=== PATIENT | female | born 1995 ===

== ENCOUNTER 2018-06-20 20:29 | Emergency (ER) | payer BC ==
--- NOTE | 2018-06-20 22:08 | UC ---
Throat Pain/Nasal Don HPI - HPI Summary HPI Summary: Pt present with c/o tender, moveable lump on left side of neck that she noticed today. Pt reports that she recently had URI infection - History of Current Complaint Chief Complaint: UCRespiratory Stated Complaint: SWELLING IN NECK Time Seen by Provider: 06/20/18 21:39 Hx Obtained From: Patient Hx Last Menstrual Period: 06/05/18 ?: No Onset/Duration: Sudden Onset, Still Present Severity: Mild Pain Intensity: 2 Pain Scale Used: 0-10 Numeric Cough: None Associated Signs & Symptoms: Positive: Negative - Epiglottits Risk Factors Epiglottis Risk Factors: Sudden Onset - Allergies/Home Medications Allergies/Adverse Reactions: Allergies Allergy/AdvReac Type Severity Reaction Status Date / Time No Known Allergies Allergy Verified 06/20/18 20:55 Home Medications: Home Medications NK [No Home Medications Reported] 06/20/18 [History Confirmed 06/20/18] PMH/Surg Hx/FS Hx/Imm Hx Previously Healthy: Yes - Surgical History Surgical History: None - Family History Known Family History: Positive: Cardiac Disease - Social History Occupation: Student [employer] Lives: Dormitory/Roommates Alcohol Use: Weekly Alcohol Amount: one glass of wine Substance Use Type: None Smoking Status (MU): Never Smoked Tobacco Have You Smoked in the Last Year: No - Immunization History Vaccination Up to Date: Yes Review of Systems All Other Systems Reviewed And Are Negative: Yes Constitutional: Positive: Negative Skin: Positive: Negative Eyes: Positive: Negative ENT: Positive: Ear Ache, Sinus Congestion Respiratory: Positive: Negative Cardiovascular: Positive: Negative Gastrointestinal: Positive: Negative Genitourinary: Positive: Negative Motor: Positive: Negative Neurovascular: Positive: Negative Musculoskeletal: Positive: Negative Neurological: Positive: Negative Psychological: Positive: Negative Is Patient Immunocompromised?: No Physical Exam Triage Information Reviewed: Yes Appearance: Well-Appearing Vital Signs: Initial Vital Signs Temp 98.6 F 06/20/18 20:50 Pulse 66 06/20/18 20:50 Resp 16 06/20/18 20:50 BP 134/80 06/20/18 20:50 Pulse Ox 100 06/20/18 20:50 Vital Signs Reviewed: Yes Eye Exam: Normal ENT: Positive: Other - cerumen in bilateral ear canals Dental Exam: Normal Neck exam: Normal Neck: Positive: Enlarged Nodes @ - left submaxillary, soft, moveable, mild tender Cardiovascular Exam: Normal Musculoskeletal Exam: Normal Neurological Exam: Normal Psychological Exam: Normal Skin Exam: Normal Throat Pain/Nasal Course/Dx - Differential Dx/Diagnosis Differential Diagnosis/HQI/PQRI: URI Provider Diagnosis: Lymphadenopathy of head and neck Discharge - Sign-Out/Discharge Documenting (check all that apply): Patient Departure All imaging exams completed and their final reports reviewed: No Studies - Discharge Plan Condition: Stable Disposition: HOME Patient Education Materials: Lymphadenopathy (ED) Referrals: Care [facility] [address] [Outside] - If Needed No Primary Care Phys,NOPCP [Primary Care Provider] - - Billing Disposition and Condition Condition: STABLE Disposition: Home
== END 2018-06-20 21:50 | disposition home or self-care (01) ==
LOC: UCEAST 20:29
DX: R22.1 Localized swelling, mass and lump, neck (principal); R22.0 Localized swelling, mass and lump, head
CPT/HCPCS: 99201; G0463